=== PATIENT | male | born 1965 ===

== ENCOUNTER 2019-04-05 05:58 | Day surgery (SDC) | payer OTHER | END 2019-04-05 14:00 | disposition home or self-care (01) | LOC: AMB-ENDOS 05:58 | DX: D12.2 Benign neoplasm of ascending colon (principal); D12.3 Benign neoplasm of transverse colon; D12.5 Benign neoplasm of sigmoid colon; K64.8 Other hemorrhoids; Z12.11 Encounter for screening for malignant neoplasm of colon ==